=== PATIENT | female | born 1990 | race Hispanic/Latino ===

== ENCOUNTER 2019-03-12 18:07 | Emergency (ER) | payer SELFPAY ==
[2019-03-13] MEDS ORDERED: Lidocaine 1% w/Epinephrine 1:100K 20 ML VIAL ONE (00:16)
== END 2019-03-13 01:24 | disposition home or self-care (01) ==
LOC: ERS 18:07
DX: L02.416 Cutaneous abscess of left lower limb (principal); L03.116 Cellulitis of left lower limb; F41.9 Anxiety disorder, unspecified; F32.9 Major depressive disorder, single episode, unspecified; Z79.899 Other long term (current) drug therapy; Z79.1 Long term (current) use of non-steroidal anti-inflammatories (NSAID)
CPT/HCPCS: 10060

== ENCOUNTER 2019-03-14 15:24 | Emergency (ER) | payer SELFPAY | END 2019-03-14 21:03 | disposition home or self-care (01) | LOC: ERS 15:24 | DX: L02.416 Cutaneous abscess of left lower limb (principal); F41.9 Anxiety disorder, unspecified; F32.9 Major depressive disorder, single episode, unspecified; Z79.899 Other long term (current) drug therapy | CPT/HCPCS: 99282 ==

== ENCOUNTER 2019-03-24 18:53 | Inpatient (IN) | payer SELFPAY ==
[2019-03-24 19:43] LABS: #Eosinphils 0.1 thou/uL (0.0-0.7); #Lymphocytes 2.1 thou/uL (1.20-3.40); #Monocytes 0.5 thou/uL (0.11-0.59); #Neutrophils 2.7 thou/uL (1.40-6.50); %Basophils 0.9 % (0.0-1.0); %Eosinophils 1.7 % (0.0-10.0); %Lymphocytes 38.8 % (21.0-51.0); %Monocytes 9.1 % (0.0-10.0); %Neutrophils 49.5 % (42.0-75.0); Hemoglobin 14.3 g/dL (12.0-16.0); Mean Corpuscular HGB CONC 35.7 g/dL (32.0-36.0); Mean Corpuscular Hemoglobin 29.6 pg (27.0-31.0); Mean Corpuscular Volume 82.9 fL (78.0-98.0); Platelet Count 339 thou/uL (130-400); RBC Distribution Width 13.3 % (11.5-14.5); Red Blood Cell (RBC) Count 4.81 mill/uL (4.20-5.40); White Blood Cell (WBC) Count 5.4 thou/uL (4.8-10.8)
[2019-03-24 20:04] LABS: ALT (SGPT) 19 U/L (8-55); AST (SGOT) 36 U/L (5-34); Alkaline Phosphatase 76 U/L (40-110); BUN (Urea Nitrogen) 16 mg/dL (7.0-18.7); Bilirubin, Total 0.9 mg/dL (0.2-1.2); Calc. Creatinine Clearance 0 mL/min (70-130); Calcium 11.3 mg/dL (7.8-10.44); Estimated GFR-MDRD 53; Glucose 100 mg/dL (70-105)
[2019-03-24 20:14] LABS: Anion Gap 20 mmol/L (10-20); Carbon Dioxide 38 mmol/L (22-29); Chloride 77 mmol/L (98-107); Sodium 133 mmol/L (136-145)
[2019-03-24] MEDS ORDERED: Potassium Chloride 20 MEQ TAB ONE ×2 (20:28→20:34)
[2019-03-24] MEDS ORDERED: Ondansetron PF 4 MG/2 ML Vial ONE (20:38)
[2019-03-24] MEDS ORDERED: Potassium Chloride 40 MEQ in Sodium Chloride 0.9% 250 ML 250 ML IVPB SCH (21:00)
[2019-03-24] MEDS ORDERED: Sodium Chloride 0.9% 1,000 ML IV SCH (22:49)
[2019-03-24] MEDS ORDERED: Ibuprofen 200 MG TAB PO PRN (23:34)
[2019-03-24] MEDS: Ibuprofen 200 MG TAB PO PRN (23:40)
[2019-03-25] MEDS ORDERED: Acetaminophen 325 MG TAB PO PRN (00:16)
[2019-03-25] MEDS ORDERED: Sodium Chloride 0.9% 1,000 ML IV SCH (00:16)
[2019-03-25] MEDS ORDERED: Ondansetron PF 4 MG/2 ML Vial IVP PRN (00:16)
[2019-03-25] MEDS ORDERED: Guaifenesin DM 100-10/5 ML UDCUP PO PRN (00:16)
[2019-03-25] MEDS ORDERED: Potassium Chloride 20 MEQ TAB PO SCH ×2 (00:30→08:00)
--- NOTE | 2019-03-25 01:17 | HP ---
REASON FOR ADMISSION: Severe hypokalemia, history of bulimia. HISTORY OF PRESENT ILLNESS: The patient gives history of developing palpitations, dizziness, and her muscles feeling numb. The patient knew that her potassium was low. This has happened in the past. She has been bulimic since she has been 11 years old. She has not been taking any medications for the last 3 days and was feeling nauseous from last 3 days as well. No purging per patient. She says she has not vomited. On arrival here, the patient was found to have had a potassium of 2.0 with a creatinine of 1.2. Currently, she is getting replaced with potassium IV. No complaints of cough or expectoration. No complaints of fever. PAST MEDICAL AND SURGICAL HISTORY: History of bulimia, anxiety disorder. She is currently in a prison house and has another 3 more weeks to stay there. She was locked up for the last 5 years. No prior surgeries. Depression. CURRENT MEDICATIONS: The patient is on; 1. Prozac 20 mg daily. 2. Zofran p.r.n. 3. Propranolol 10 mg twice daily. ALLERGIES: TO TETRACYCLINE. PERSONAL HISTORY: Does not abuse alcohol or drugs. No history of smoking. The patient states she is , has no children. FAMILY HISTORY: Both parents are living. Mother has history of Mian's chorea. Father is alcoholic. CODE STATUS: Full. REVIEW OF SYSTEMS: CONSTITUTIONAL: Negative for weight loss or gain, ability to conduct usual activities. SKIN: Negative for rash, itching. EYES: Negative for double vision, pain. ENT/MOUTH: Negative for nose bleeding, neck stiffness, pain, tenderness. CARDIOVASCULAR: Negative for palpitations, dyspnea on exertion, orthopnea. RESPIRATORY: Negative for shortness of breath, wheezing, cough, hemoptysis, fever or night sweats. GASTROINTESTINAL: Negative for poor appetite, abdominal pain, heartburn, nausea , vomiting, constipation, or diarrhea. GENITOURINARY: Negative for urgency, frequency, dysuria, nocturia. MUSCULOSKELETAL: Negative for pain, swelling. NEUROLOGIC/PSYCHIATRIC: Negative for anxiety, depression. ALLERGY/IMMUNOLOGIC: Negative for skin rash, bleeding tendency. PHYSICAL EXAMINATION: GENERAL: The patient is a 28-year-old female, who is currently not in any acute distress. VITAL SIGNS: Blood pressure 120/80, pulse 78 per minute, respiratory rate 18 per minute, temperature 97.8 degrees Fahrenheit, saturating 97% on room air. NECK: Supple. No elevated JVD. HEENT: Eyes; extraocular muscles intact. Pupils reacting to light. Oral cavity, mucous membranes are dry. No exudates or congestion. CARDIOVASCULAR: S1, S2 heard. Regular rhythm. RESPIRATORY: Air entry 1+ bilateral. No rales or rhonchi. ABDOMEN: Soft, bowel sounds heard. No tenderness, rigidity, or guarding. EXTREMITIES: No peripheral edema or calf tenderness. VASCULAR: Peripheral pulses 1+ bilateral. No ischemic ulcerations or gangrene. CENTRAL NERVOUS SYSTEM: No gross focal deficits noted. The patient is alert, awake, and oriented well. PSYCHIATRIC: The patient's mood is euthymic. No hallucinations or delusions. LABORATORY DATA: White count of 5.4, H and H 14 and 39, platelet count 339, MCV is 82 with 49% neutrophils. Sodium 133, potassium 2.0, chloride 77, serum bicarb 38, BUN 16, creatinine 1.21, calcium 11.3, AST 36, ALT 19, albumin 5.0. EKG done shows sinus rhythm at 65 beats per minute. UT interval is 110 milliseconds. CLINICAL IMPRESSION AND PLAN: The patient will be under observation on telemetry for severe hypokalemia, moderate dehydration and mild acute kidney injury with history of bulimia. We will replace her potassium. She is currently getting IV potassium replacement and we will also give oral potassium, K-Dur 40 mEq p.o. q.6 hourly for a total of 4 doses. Repeat metabolic panel will be obtained in the morning. She will be on normal saline at 100 mL per hour. We will continue her propranolol and Prozac as before. When she gets discharged she needs prescriptions for these two medications. We will obtain a TSH in the morning. She will be on a regular diet as well. We will continue to closely monitor her on telemetry. Currently, the patient is not having any arrhythmias. Job ID: [id number] [facility]
[2019-03-25 02:08] VITALS: BMI 19.7
[2019-03-25 06:03] LABS: Anion Gap 18 mmol/L (10-20); Chloride 81 mmol/L (98-107); Sodium 138 mmol/L (136-145)
[2019-03-25 06:07] LABS: Carbon Dioxide 41 mmol/L (22-29); Potassium 2.1 mmol/L (3.5-5.1)
[2019-03-25 06:08] LABS: BUN (Urea Nitrogen) 16 mg/dL (7.0-18.7); Calc. Creatinine Clearance 54 mL/min (70-130); Calcium 9.6 mg/dL (7.8-10.44); Estimated GFR-MDRD 50; Glucose 92 mg/dL (70-105)
[2019-03-25] MEDS ORDERED: NS 0.9% w/ 20 MEQ KCL 1,000 ML IV SCH (06:30)
[2019-03-25] MEDS: Potassium Chloride 20 MEQ TAB PO SCH ×4 (07:22→23:05)
[2019-03-25 07:44] LABS: Phosphorus 3.2 mg/dL (2.3-4.7)
[2019-03-25] MEDS: FLUoxetine HCl 20 MG CAP PO SCH (09:09)
[2019-03-25] MEDS: Propranolol 10 MG TAB PO SCH ×2 (09:10→19:59)
[2019-03-25] MEDS: NS 0.9% w/ 20 MEQ KCL 1,000 ML IV SCH ×2 (09:10→18:00)
[2019-03-25] MEDS: Famotidine/PF 20 mg/2ml Vial SLOW IVP SCH ×2 (09:10→19:59)
--- NOTE | 2019-03-25 13:03 | PDOC.HOSPP ---
- Subjective Encounter Date: 03/25/19 Encounter Time: 13:02 Subjective: Ms. Redmond was seen today in follow-up of hypokalemia. She says she feels better. She has less numbness and tingling in her extremities. - Objective Vital Signs & Weight: Vital Signs (12 hours) Temp Pulse Resp BP BP Pulse Ox 03/25/19 11:53 97.9 F 68 16 103/66 99 03/25/19 07:50 97.4 F L 65 18 107/71 100 03/25/19 03:52 97.5 F L 67 16 113/59 L 97 Weight Weight 115 lb 1.301 oz I&O: 03/24/19 03/25/19 03/26/19 06:59 06:59 06:59 Intake Total 1220 600 Balance 1220 600 Result Diagrams: 03/24/19 19:14 03/25/19 04:43 Hospitalist ROS - Medication Medications: Active Medications Generic Name Dose Route Start Last Admin Trade Name Freq PRN Reason Stop Dose Admin Famotidine 20 mg 03/25/19 09:00 03/25/19 09:10 Pepcid SLOW IVP 20 mg Q12HR MECHE Administration Fluoxetine HCl 20 mg 03/25/19 09:00 03/25/19 09:09 Prozac PO 20 mg DAILY MECHE Administration Potassium Chloride/Sodium Chloride 1,000 mls @ 125 mls/hr 03/25/19 08:58 09:10 Ns 0.9% W/ 20 Meq Kcl IV 1,000 mls .Q8H MECHE Administration Ibuprofen 400 mg 03/25/19 02:19 03/24/19 23:40 Motrin PO 400 mg Q8H PRN Administration Mild Pain (1-3) Potassium Chloride 40 meq 03/25/19 06:15 03/25/19 11:40 K-Dur PO 03/26/19 12:16 40 meq Q6H MECHE Administration Propranolol HCl 10 mg 03/25/19 09:00 03/25/19 09:10 Inderal PO 10 mg BID MECHE Administration - Exam Eye: PERRL Heart: RRR, no murmur, no gallops, no rubs, normal peripheral pulses Respiratory: CTAB, no wheezes, no rales, no ronchi, normal chest expansion Gastrointestinal: soft, non-tender, non-distended, normal bowel sounds, no palpable masses, no hepatomegaly Extremities: no cyanosis, no edema Hosp A/P (1) Hypokalemia Code(s): E87.6 - HYPOKALEMIA Status: Acute (2) Bulimia nervosa Code(s): F50.2 - BULIMIA NERVOSA Status: Chronic - Plan * Hypokalemia- will continue to replace- likely due to GI losses * Bulimia- continue Prozac
[2019-03-25 14:29] LABS: Potassium, Urine 91.7 mmol/L
[2019-03-25] MEDS: Ibuprofen 200 MG TAB PO PRN (14:47)
[2019-03-25] MEDS ORDERED: FLU VACC QS2019-20(6MOS UP)/PF 60 MCG/0.5 ML SYRINGE IM ONE (21:00)
[2019-03-26] MEDS: NS 0.9% w/ 20 MEQ KCL 1,000 ML IV SCH ×2 (03:24→10:04)
[2019-03-26 05:31] LABS: Anion Gap 6 mmol/L (10-20); BUN (Urea Nitrogen) 13 mg/dL (7.0-18.7); Calc. Creatinine Clearance 82 mL/min (70-130); Calcium 8.2 mg/dL (7.8-10.44); Carbon Dioxide 35 mmol/L (22-29); Chloride 103 mmol/L (98-107); Estimated GFR-MDRD 81; Glucose 89 mg/dL (70-105); Sodium 141 mmol/L (136-145)
[2019-03-26] MEDS: Potassium Chloride 20 MEQ TAB PO SCH ×2 (06:32→11:49)
[2019-03-26] MEDS: Famotidine/PF 20 mg/2ml Vial SLOW IVP SCH (09:54)
[2019-03-26] MEDS: FLUoxetine HCl 20 MG CAP PO SCH (09:54)
[2019-03-26] MEDS: Propranolol 10 MG TAB PO SCH (09:54)
--- NOTE | 2019-03-26 12:06 | PDOC.HOSPP ---
- Subjective Encounter Date: 03/26/19 Encounter Time: 12:04 Subjective: Ms. Redmond was seen today in follow-up of hypokalemia following vomiting. She says she is feeling better, no new complaints. - Objective Vital Signs & Weight: Vital Signs (12 hours) Temp Pulse Resp BP BP Pulse Ox 03/26/19 11:33 97.6 F 69 17 97/53 L 100 03/26/19 09:55 62 16 102/63 03/26/19 07:48 98.2 F 71 10 L 98/59 L 99 03/26/19 03:34 98.0 F 56 L 16 90/53 L 99 Weight Weight 115 lb 1.301 oz I&O: 03/25/19 03/26/19 03/27/19 06:59 06:59 06:59 Intake Total 1220 4286 Output Total 100 Balance 1220 4186 Result Diagrams: 03/24/19 19:14 03/26/19 04:38 Hospitalist ROS - Medication Medications: Active Medications Generic Name Dose Route Start Last Admin Trade Name Darrius PRN Reason Stop Dose Admin Famotidine 20 mg 03/25/19 09:00 03/26/19 09:54 Pepcid SLOW IVP 20 mg Q12HR MECHE Administration Fluoxetine HCl 20 mg 03/25/19 09:00 03/26/19 09:54 Prozac PO 20 mg DAILY MECHE Administration Ibuprofen 400 mg 03/25/19 02:19 03/25/19 14:47 Motrin PO 400 mg Q8H PRN Administration Mild Pain (1-3) Potassium Chloride 40 meq 03/25/19 06:15 03/26/19 11:49 K-Dur PO 03/26/19 12:16 40 meq Q6H MECHE Administration Propranolol HCl 10 mg 03/25/19 09:00 03/26/19 09:54 Inderal PO 10 mg BID MECHE Administration - Exam Eye: PERRL Heart: RRR, no murmur, no gallops, no rubs, normal peripheral pulses Respiratory: CTAB, no wheezes, no rales, no ronchi, normal chest expansion, no tachypnea, normal percussion Gastrointestinal: soft, non-tender, non-distended, normal bowel sounds, no palpable masses, no hepatomegaly Extremities: no cyanosis, no edema Hosp A/P (1) Hypokalemia Code(s): E87.6 - HYPOKALEMIA Status: Acute (2) Bulimia nervosa Code(s): F50.2 - BULIMIA NERVOSA Status: Chronic - Plan * Hypokalemia- Potassium is up to 3.0 today * Continue to replace * Bulimia- continue Prozac * Will re-check the level this afternoon- and if it is trending up, will consider discharge from the hospital.
[2019-03-26 16:07] LABS: Potassium 4.2 mmol/L (3.5-5.1)
[2019-03-26 16:35] VITALS: BP 97/60; TEMP 98
--- NOTE | 2019-03-27 02:18 | DIS ---
DATE OF ADMISSION: 03/24/2019 DATE OF DISCHARGE: 03/26/2019 DISCHARGE DISPOSITION: Home. DISCHARGE DIAGNOSES: 1. Hypokalemia. 2. Nausea and vomiting. 3. History of bulimia. 4. History of anxiety. DISCHARGE MEDICATIONS: Include: 1. Prozac 20 mg p.o. daily. 2. Propranolol 10 mg twice daily. 3. Atarax 10 mg t.i.d. as needed. 4. Zofran 4 mg q.8 hours as needed. CODE STATUS: Full code. ALLERGIES: TO TETRACYCLINE. HOSPITAL COURSE: Ms. Redmond is a pleasant 28-year-old female, [facility] She has a history of bulimia nervosa. She came to the emergency room after she has noticed she was feeling dizzy and her muscles are feeling numb. She has a history of hypokalemia in the past and knew that her potassium was low. When she was evaluated in the ER, her potassium was found to be 2.1. She denies having any bulimic symptoms now and says that her nausea and vomiting was related to an antibiotic that she was prescribed. She says she is no longer on the antibiotic. She was admitted and her potassium was replaced. At the time of discharge, her potassium was 4.2. She also had an acute kidney injury as well, which was resolved at the time of discharge with IV hydration. Once clinically stable, she was discharged home. She was instructed to follow up with her primary care physician in 1 week. Job ID: [id number]
== END 2019-03-26 17:07 | disposition home or self-care (01) | DRG 641 ==
LOC: ERS 18:53 → 2SW 23:46 → OBSVTOIN 23:46
PROVIDERS: ADMIT Internal Medicine; ATTEND Internal Medicine
DX: E87.6 Hypokalemia (principal); N17.9 Acute kidney failure, unspecified; F50.2 Bulimia nervosa; E86.0 Dehydration; F41.9 Anxiety disorder, unspecified; Z79.899 Other long term (current) drug therapy
CPT/HCPCS: 36415; 80048; 80053; 83735; 84100; 84133; 84300; 84443; 85025; 90471; 90686; 93005; G0008; J2405; J3480; J7050; S0028

== ENCOUNTER 2019-03-30 19:57 | Emergency (ER) | payer OTHER, SELFPAY ==
[2019-03-30 20:41] LABS: #Basophils 0.1 thou/uL (0.0-0.2); #Eosinphils 0.1 thou/uL (0.0-0.7); #Lymphocytes 2.4 thou/uL (1.20-3.40); #Monocytes 0.5 thou/uL (0.11-0.59); #Neutrophils 2.4 thou/uL (1.40-6.50); %Eosinophils 1.7 % (0.0-10.0); %Lymphocytes 44.4 % (21.0-51.0); %Monocytes 8.3 % (0.0-10.0); %Neutrophils 44.7 % (42.0-75.0); Hemoglobin 11.5 g/dL (12.0-16.0); Mean Corpuscular Hemoglobin 28.3 pg (27.0-31.0); Mean Corpuscular Volume 85.8 fL (78.0-98.0); Mean Platelet Volume 6.6 fL (7.4-10.4); Platelet Count 261 thou/uL (130-400); RBC Distribution Width 14.2 % (11.5-14.5); Red Blood Cell (RBC) Count 4.07 mill/uL (4.20-5.40); White Blood Cell (WBC) Count 5.4 thou/uL (4.8-10.8)
[2019-03-30 20:52] LABS: BHCG - Serum Negative (NEGATIVE); Pregs Control Background? CLEAR/WHITE (CLR/WHITE); Pregs Control Bar Appear? YES (CONTROL BAR)
[2019-03-30 21:00] LABS: ALT (SGPT) 17 U/L (8-55); AST (SGOT) 24 U/L (5-34); Albumin 4.1 g/dL (3.5-5.0); Alkaline Phosphatase 63 U/L (40-110); Anion Gap 8 mmol/L (10-20); BUN (Urea Nitrogen) 11 mg/dL (7.0-18.7); Bilirubin, Total 0.4 mg/dL (0.2-1.2); Calc. Creatinine Clearance 0 mL/min (70-130); Calcium 9.2 mg/dL (7.8-10.44); Carbon Dioxide 37 mmol/L (22-29); Chloride 99 mmol/L (98-107); Estimated GFR-MDRD 68; Globulin 2.4 g/dL (2.4-3.5); Glucose 106 mg/dL (70-105); Potassium 3.8 mmol/L (3.5-5.1); Protein, Total 6.5 g/dL (6.0-8.3); Sodium 140 mmol/L (136-145)
[2019-03-30 21:23] LABS: Bacteria/HPF None Seen HPF (None Seen); Bilirubin Negative (Negative); Blood, Urine Negative (Negative); Clarity Clear (Clear); Glucose, Urine (Dipstick) Normal (Negative); Leukocyte Negative Leu/uL (Negative); Nitrite Negative (Negative); Protein, Urine (Dipstick) 50 mg/dL (Neg-Trace); RBC/HPF 0-3 HPF (0-3); Squamous Epithelial 0-3 HPF (0-3); Urobilinogen Normal mg/dL (Less than 2); WBC/HPF 0-3 HPF (0-3)
--- NOTE | 2019-03-30 22:37 | RAD ---
XR Chest 1 View Portable HISTORY: Chest pain and syncope COMPARISON: None. FINDINGS: Heart size and mediastinum are within normal limits. The lungs are clear of infiltrates. No significant bony findings. IMPRESSION: No active intrathoracic disease.
== END 2019-03-30 23:34 | disposition home or self-care (01) ==
LOC: ERS 19:57
DX: F50.2 Bulimia nervosa (principal); E86.0 Dehydration; F41.9 Anxiety disorder, unspecified; F32.9 Major depressive disorder, single episode, unspecified
CPT/HCPCS: 36415; 71045; 80053; 81003; 81015; 83690; 83735; 83880; 84484; 84703; 85025; 85379; 93005; 96360

== ENCOUNTER 2019-04-06 19:41 | Emergency (ER) | payer SELFPAY ==
[2019-04-06 20:42] LABS: #Eosinphils 0.2 thou/uL (0.0-0.7); #Lymphocytes 1.8 thou/uL (1.20-3.40); #Monocytes 0.6 thou/uL (0.11-0.59); #Neutrophils 5.6 thou/uL (1.40-6.50); %Basophils 0.3 % (0.0-1.0); %Lymphocytes 22.2 % (21.0-51.0); %Monocytes 7.1 % (0.0-10.0); %Neutrophils 68.5 % (42.0-75.0); Hemoglobin 12.1 g/dL (12.0-16.0); Mean Corpuscular HGB CONC 33.4 g/dL (32.0-36.0); Mean Corpuscular Hemoglobin 28.7 pg (27.0-31.0); Mean Corpuscular Volume 85.9 fL (78.0-98.0); Mean Platelet Volume 6.6 fL (7.4-10.4); Platelet Count 274 thou/uL (130-400); RBC Distribution Width 13.7 % (11.5-14.5); Red Blood Cell (RBC) Count 4.22 mill/uL (4.20-5.40); White Blood Cell (WBC) Count 8.2 thou/uL (4.8-10.8)
[2019-04-06 21:03] LABS: ALT (SGPT) 13 U/L (8-55); AST (SGOT) 17 U/L (5-34); Albumin 4.4 g/dL (3.5-5.0); Alkaline Phosphatase 62 U/L (40-110); Anion Gap 11 mmol/L (10-20); BUN (Urea Nitrogen) 12 mg/dL (7.0-18.7); Bilirubin, Total 0.3 mg/dL (0.2-1.2); Calc. Creatinine Clearance 0 mL/min (70-130); Calcium 9.3 mg/dL (7.8-10.44); Carbon Dioxide 30 mmol/L (22-29); Chloride 100 mmol/L (98-107); Estimated GFR-MDRD 67; Globulin 2.5 g/dL (2.4-3.5); Glucose 100 mg/dL (70-105); Protein, Total 6.9 g/dL (6.0-8.3); Sodium 138 mmol/L (136-145)
[2019-04-06 21:14] LABS: Potassium 2.9 mmol/L (3.5-5.1)
[2019-04-06] MEDS ORDERED: Potassium Chloride 20 MEQ TAB ONE (21:25)
[2019-04-06] MEDS ORDERED: Magnesium 2 GM/50 ML BAG (IN WATER) ONE (21:25)
[2019-04-06 21:53] LABS: Bilirubin Negative (Negative); Blood, Urine Negative (Negative); Clarity Clear (Clear); Glucose, Urine (Dipstick) Normal (Negative); Leukocyte Negative Leu/uL (Negative); Mucous/LPF Rare LPF (<2+); Nitrite Negative (Negative); Protein, Urine (Dipstick) 50 mg/dL (Neg-Trace); RBC/HPF 0-3 HPF (0-3); Urobilinogen Normal mg/dL (Less than 2); WBC/HPF 0-3 HPF (0-3)
[2019-04-06 21:59] LABS: Bacteria/HPF Rare-Few HPF (None Seen)
[2019-04-06] MEDS ORDERED: Acetaminophen 500 MG TAB ONE (22:49)
--- NOTE | 2019-04-14 11:46 | EKG ---
Test Reason : Blood Pressure : / mmHG Vent. Rate : 061 BPM Atrial Rate : 061 BPM P-R Int : 138 ms QRS Dur : 094 ms QT Int : 416 ms P-R-T Axes : 053 075 041 degrees QTc Int : 418 ms Normal sinus rhythm Normal ECG Confirmed by IRENE MAR ([id number]), restaurant expeditor GRISELDA GUY ([id number] on 04/14/2019 11:46:08 AM Referred By: Confirmed By:IRENE MAR
== END 2019-04-06 23:35 | disposition home or self-care (01) ==
LOC: ERS 19:41
DX: E87.6 Hypokalemia (principal); J02.9 Acute pharyngitis, unspecified; F41.9 Anxiety disorder, unspecified; F32.9 Major depressive disorder, single episode, unspecified; F50.2 Bulimia nervosa; Z79.899 Other long term (current) drug therapy
CPT/HCPCS: 80053; 81003; 81015; 83735; 85025; 93005; 96365; J3475

== ENCOUNTER 2019-04-07 14:39 | Emergency (ER) | payer SELFPAY | END 2019-04-07 15:57 | disposition home or self-care (01) | LOC: ERS 14:39 | DX: R11.10 Vomiting, unspecified (principal); F41.9 Anxiety disorder, unspecified; F32.9 Major depressive disorder, single episode, unspecified; Z79.899 Other long term (current) drug therapy | CPT/HCPCS: 87081; 87430; 87804; 99284 ==